=== PATIENT | male | born 1960 | race Caucasian/White ===

== ENCOUNTER 2022-02-01 13:55 | Emergency (ER) | payer BC, SELFPAY ==
[2022-02-01] VITALS (15 sets, daily range): BP systolic 130–148; BP diastolic 64–102; PULSE 99–117; RESP 16–26; TEMP 37; O2SAT 93–98
--- NOTE | ~2022-02-01 | CT_ITS ---
EXAMINATION: CTA chest PE protocol DATE: 02/01/2022 15:44 INDICATION: SOA. CHEST PAIN/TIGHTNESS RADIATING INTO BACK. TECHNIQUE: Computed tomography angiography (CTA) of the chest was performed with 100 mL Omnipaque-350 intravenous contrast timed to evaluate the pulmonary arteries. Coronal maximum intensity projection 3D-reconstructions were created by the technologist. The dose-length product (DLP) was 1398.54 mGy-cm . Automated exposure control and iterative reconstruction technique were employed. COMPARISON: None. FINDINGS: Study quality: Mild motion artifact, particularly in the lower lobes decreasing sensitivity for subse gmental emboli but overall adequate. Pulmonary arteries: No pulmonary emboli detected. Thoracic aorta: Mild arch consultation. No obvious dissection or aneurysm. Lung parenchyma and airways: Clear. Thoracic inlet, axillae and chest wall: Unremarkable. Mediastinum: Normal. Heart and pericardium: Normal. Coronary artery calcifications: Minimal. Pleura: Unremarkable. Upper abdomen: No significant finding. Bones: No acute osseous finding. IMPRESSION: No CT evidence of acute pulmonary embolus. Reviewed, dictated and finalized at location K.
--- NOTE | 2022-02-01 13:56 | ECG_ITS ---
Measurements Intervals [place] Rate: 119 P: [place]: 0 QRS: -3 QRSD: 87 T: 61 QT: 302 QTc: 425 Interpretive Statements ATRIAL FLUTTER/TACHYCARDIA WITH RAPID VENTRICULAR RESPONSE EARLY REPOLARIZATION [ST ELEVATION WITH NORMALLY INFLECTED T WAVE] ABNORMAL RHYTHM ECG NO PREVIOUS ECG AVAILABLE FOR COMPARISON Electronically Signed On 02-01-2022 16:53:24 CDT by Lisa Moon M.D.
[2022-02-01 14:23] LABS: Basophils Percent Auto 0.3 % (0.2-1.2); Eosinophils Absolute Auto 0.2 K/mm3 (0-0.3); Eosinophils Percent Auto 2.1 % (0-4.4); Immature Granulocyte Absolute 0.03 K/mm3 (0.00-0.031); Immature Granulocyte Percent A 0.3 % (0-0.5); Lymphocytes Absolute Auto 1.52 K/mm3 (0.9-3.2); Lymphocytes Percent Auto 17.1 % (18.3-44.2); Mean Corpuscular HGB Conc 32.7 g/dl (32-36); Mean Corpuscular Hemoglobin 30.5 pg (26-34); Mean Corpuscular Volume 93.3 fl (80-100); Mean Platelet Volume 8.8 fl (7.4-10.4); Neutrophils Absolute Auto 6.1 K/mm3 (1.3-6.7); Neutrophils Percent Auto 69.2 % (45.5-73.1); Platelet Count Result 221 k/mm3 (150-375); Red Blood Count 5.25 M/mm3 (4.6-6.20); Red Cell Distribution Width 14.5 % (11.5-14.5); White Blood Count 8.9 K/mm3 (4.5-10.0)
[2022-02-01 14:33] LABS: Partial Thromboplastin Time 32.6 SECONDS (22.3-36.8); Prothrombin Time 13.1 Seconds (11.1-14.7)
[2022-02-01 14:36] LABS: Alanine Aminotransferase 26 U/L (6-50); Albumin Level 4.9 g/dL (3.5-5.1); Alkaline Phosphatase 104 U/L (38-126); Anion Gap 7 mmol/L (8-16); Aspartate Amino Transferase 24 U/L (17-59); Bilirubin,Total 0.7 mg/dL (0.2-1.3); Blood Urea Nitrogen 13 mg/dL (9-20); Calcium 9.5 mg/dL (8.4-10.2); Carbon Dioxide 26 mmol/L (22-30); Chloride 103 mmol/L (98-107); Estimated CRCL calculation 93 ml/min; Estimated Glomerular Filt Rate > 60; Glucose 153 mg/dL (65-110); Lipase 44 U/L (23-300); Potassium 4.2 mmol/L (3.4-5.0); Sodium 136 mmol/L (137-145)
[2022-02-01 14:50] LABS: Troponin I < 0.012 ng/mL (0.000-0.034)
[2022-02-01] MEDS: KETOROLAC 30 MG/ML VIAL (*BKC) IV PUSH (16:16)
[2022-02-01] MEDS: SODIUM CHLORIDE 0.9% IV 1,000 ML 999 ML IV CONT (16:16)
[2022-02-01 17:44] LABS: Troponin I < 0.012 ng/mL (0.000-0.034)
--- NOTE | 2022-02-01 17:50 | ED.GENADULT ---
HPI - General Adult General Chief complaint: Chest Pain Stated complaint: chest pain Time Seen by Provider: 02/01/22 14:21 History of Present Illness HPI narrative: Patient is a 61-year-old male who presents ER with back pain. Began last night. Also located in the left chest. Pain is worse with deep breath. No exertional dyspnea or chest pain. No history of heart disease. Has not take any pain medication. Reports he then woke up this morning flew back from [place] and option to be evaluated. He had been in [place] for the last week playing golf. No fevers or chills or sweats. No new cough. Related Data Home Medications Medication Instructions Recorded Confirmed bupropion HCl 150 mg tablet,12 hr 150 mg PO DAILY 02/01/22 sustained-release dapagliflozin 10 mg tablet 10 mg PO QAM 02/01/22 (Farxiga) duloxetine 60 mg capsule,delayed 60 mg PO DAILY 02/01/22 release sprinkle metformin 500 mg tablet 500 mg PO BID 02/01/22 ramipril 10 mg capsule 10 mg PO DAILY 02/01/22 rosuvastatin 40 mg tablet 40 mg PO DAILY 02/01/22 Allergies Allergy/AdvReac Type Severity Reaction Status Date / Time No Known Allergies Allergy Mild Verified 02/01/22 14:05 [facility] Past Medical History Medical History (Updated 02/01/22 @ 18:14 by Guille Randhawa MD) Diabetes HTN (hypertension), benign Hyperlipidemia PSVT (paroxysmal supraventricular tachycardia) Surgical History Surgical History (Updated 02/01/22 @ 17:58 by Guille Randhawa MD) History of cardiac radiofrequency ablation History of tonsillectomy Social History Social History (Updated 02/01/22 @ 17:59 by Guille Randhawa MD) Alcohol intake: current Exam Narrative: GENERAL: Well-appearing, well-nourished, and in no acute distress. HEAD: Normocephalic, atraumatic. CHEST: Clear to auscultation. No respiratory distress. HEART: Tachycardic and regular. Normal peripheral pulses. ABDOMEN: Soft, nontender, nondistended. EXTREMITIES: Normal range of motion. No edema. SKIN: Warm, dry, no rash. NEURO: Alert and oriented x3. PSYCH: Normal mood and affect. Course Course Emergency Course: Chest and back pain-free after Toradol. No complaints. Troponin negative x2. Traveling to [facility] where he resides tomorrow. Encouraged him to get a stress test. Vital Signs Vital signs: Vital Signs Temperature 98.6 F 02/01/22 14:06 Pulse Rate 116 H 02/01/22 14:06 Respiratory Rate 18 02/01/22 14:06 Pulse Oximetry 97 02/01/22 14:06 Temperature 98.6 F 02/01/22 14:06 Pulse Rate 104 H 02/01/22 17:30 Respiratory Rate 22 H 02/01/22 17:30 Blood Pressure 130/66 02/01/22 17:30 Pulse Oximetry 97 02/01/22 17:30 Medical Decision Making Vital Signs Vital Signs: Vital Signs Temperature 98.6 F 02/01/22 14:06 Pulse Rate 116 H 02/01/22 14:06 Respiratory Rate 18 02/01/22 14:06 Pulse Oximetry 97 02/01/22 14:06 Temperature 98.6 F 02/01/22 14:06 Pulse Rate 104 H 02/01/22 17:30 Respiratory Rate 22 H 02/01/22 17:30 Blood Pressure 130/66 02/01/22 17:30 Pulse Oximetry 97 02/01/22 17:30 Lab Data Result diagrams: 02/01/22 14:18 02/01/22 14:18 Labs: Lab Results 02/01/22 02/01/22 02/01/22 Range/Units 14:18 14:18 14:18 WBC 8.9 (4.5-10.0) K/mm3 RBC 5.25 (4.6-6.20) M/mm3 Hgb 16.0 (14.0-18.0) g/dL Hct 49.0 (42.0-52.0) % MCV 93.3 (80-100) fl MCH 30.5 (26-34) pg MCHC 32.7 (32-36) g/dl RDW 14.5 (11.5-14.5) % Plt Count 221 (150-375) k/mm3 MPV 8.8 (7.4-10.4) fl Immature Gran % (Auto) 0.3 (0-0.5) % Neut % (Auto) 69.2 (45.5-73.1) % Lymph % (Auto) 17.1 L (18.3-44.2) % [place] % (Auto) 11.0 H (2.6-8.5) % Eos % (Auto) 2.1 (0-4.4) % Baso % (Auto) 0.3 (0.2-1.2) % Lymph # (Auto) 1.52 (0.9-3.2) K/mm3 [place] # (Auto) 1.0 H (0.1-0.6) K/mm3 Eos # (Auto) 0.2 (0-0.3) K/mm3 Baso #
== END 2022-02-01 18:56 | disposition home or self-care (01) ==
PROVIDERS: Emergency Medicine; Emergency Provider Emergency Medicine
DX: R07.89 Other chest pain (principal); M54.9 Dorsalgia, unspecified; E11.9 Type 2 diabetes mellitus without complications; I10 Essential (primary) hypertension; E78.5 Hyperlipidemia, unspecified; Z79.84 Long term (current) use of oral hypoglycemic drugs; I48.92 Unspecified atrial flutter; R00.0 Tachycardia, unspecified; R94.31 Abnormal electrocardiogram [ECG] [EKG]
CPT/HCPCS: 36415; 71275; 80053; 83690; 84484; 85025; 85610; 85730; 93005; 96361; 96374; 99284; J1885; J7030; Q9967